=== PATIENT | female | born 1970 | race Asian ===

== ENCOUNTER 2018-07-05 13:54 | Emergency (ER) | payer OTHER ==
[2018-07-05 14:13] VITALS: BP 120/66; PULSE 87; TEMP 97.9; BMI 28.2
--- NOTE | 2018-07-05 15:39 | PDOC ---
History of Present Illness - General Chief Complaint: Vaginal Bleeding Stated Complaint: BLEEDING Time Seen by Provider: 07/05/18 15:26 History Source: Patient Past History - Past Medical History Allergies/Adverse Reactions: Allergies Allergy/AdvReac Type Severity Reaction Status Date / Time No Known Allergies Allergy Verified 07/05/18 14:10 Home Medications: Ambulatory Orders NK [No Known Home Medication] 07/05/18 HTN: Yes - Suicide/Smoking/Psychosocial Hx Smoking History: Never smoked Have you smoked in the past 12 months: No Number of Cigarettes Smoked Daily: 0 Hx Alcohol Use: No Drug/Substance Use Hx: No Review of Systems - Review of Systems Constitutional: No: Chills, Fever, Malaise, Weakness ABD/GI: No: Nausea, Vomiting, Abdominal cramping Neurological: No: Dizziness *Physical Exam - Vital Signs Last Vital Signs Temp Pulse Resp BP Pulse Ox 97.9 F 87 16 120/66 99 07/05/18 14:10 07/05/18 14:10 07/05/18 14:10 07/05/18 14:10 07/05/18 14:10 - Physical Exam General Appearance: Yes: Appropriately Dressed. No: Apparent Distress HEENT: positive: Normal Voice Neck: positive: Supple Respiratory/Chest: negative: Respiratory Distress Gastrointestinal/Abdominal: positive: Soft. negative: Tender Integumentary: positive: Dry, Warm Neurologic: positive: Fully Oriented, Alert, Normal Mood/Affect Moderate Sedation - Procedure Monitoring Vital Signs: Procedure Monitoring Vital Signs Temperature 97.9 F 07/05/18 14:10 Pulse Rate 87 07/05/18 14:10 Respiratory Rate 16 07/05/18 14:10 Blood Pressure 120/66 07/05/18 14:10 O2 Sat by Pulse Oximetry (%) 99 07/05/18 14:10 Medical Decision Making - Medical Decision Making 48 yo F, hypothyroid, p/w irregular vag bleed. Pt states she gets monthly menses , last normal was 04/23, had decreased bleeding last week and since 06/20 has been bleeding, light flow now. No abd pain, weakness, dizziness, n/v/v/c. Seen at last week and had nl labs and neg preg test (Pt has results in phone demonstrating Hgb of 12.6). Has since made appt for an US and to see her [employer] and PMD but presents today requesting "medication" for bleeding See exam DUB Neg labs at last week Stable and well aminata w/ unremarkable exam Possible agnes-menopausal, unlikely fibroid, neg preg test last week in No intervention needed in ED -Will dc to f/u with [employer] for further evaluation and US *DC/Admit/Observation/Transfer Diagnosis at time of Disposition: Dysfunctional uterine bleeding - Discharge Dispostion Disposition: HOME Condition at time of disposition: Good - Referrals Referrals: Ethan Valverde MD [Primary Care Provider] - - Patient Instructions Printed Discharge Instructions: DI for Vaginal Bleeding Additional Instructions: You need to follow up with your [employer] and PMD for further evaluation for your vaginal bleeding Return for worsening of symptoms - Post Discharge Activity
== END 2018-07-05 15:52 | disposition home or self-care (01) ==
LOC: JER 13:54
DX: N93.8 Other specified abnormal uterine and vaginal bleeding (principal); I10 Essential (primary) hypertension
CPT/HCPCS: 99281-25

== ENCOUNTER 2025-01-01 22:41 | Emergency (ER) | payer OTHER ==
[2025-01-01 22:53] VITALS: BP 134/72; PULSE 85; RESP 18; TEMP 98; BMI 32.5
[2025-01-01] MEDS ORDERED: IBUPROFEN 400 MG TABLET (FP) PO ONE (23:25)
[2025-01-01] MEDS ORDERED: ACETAMINOPHEN 325 MG TABLET (FP) ONE (23:25)
[2025-01-01] MEDS: IBUPROFEN 400 MG TABLET (FP) PO ONE (23:26)
[2025-01-01] MEDS: ACETAMINOPHEN 325 MG TABLET (FP) PO ONE (23:27)
[2025-01-03 21:18] LABS: HIV INTERPRETATION NEGATIVE (NEGATIVE)
[2025-01-04 22:23] LABS: HCV DIAGNOSTIC IN-HOUSE W/RFLX NON-REACTIVE (NONREACTIVE)
== END 2025-01-02 01:50 | disposition home or self-care (01) ==
LOC: JER 22:41
DX: M25.561 Pain in right knee (principal); M25.461 Effusion, right knee; M25.531 Pain in right wrist; R51.9 Headache, unspecified; R42 Dizziness and giddiness; R21 Rash and other nonspecific skin eruption; V43.52XA Car driver injured in collision with other type car in traffic accident, initial encounter; Y92.410 Unspecified street and highway as the place of occurrence of the external cause
CPT/HCPCS: 36415; 70450-TC; 86803; 87389; 99284-25